=== PATIENT | female | born 1975 ===

== ENCOUNTER → 2017-10-05 17:54 | Outpatient (CLI) | payer OTHER | END | disposition home or self-care (01) | LOC: LAB 17:54 | DX: D68.8 Other specified coagulation defects (principal); I10 Essential (primary) hypertension; N39.0 Urinary tract infection, site not specified; Z01.818 Encounter for other preprocedural examination ==

== ENCOUNTER 2020-03-09 17:10 | Emergency (ER) | payer OTHER ==
[~2020-03-09] VITALS: Ht 167.6 cm; Wt 61.2 kg
== END 2020-03-09 20:30 | disposition home or self-care (01) ==
LOC: ER 17:10
DX: N61.0 Mastitis without abscess (principal); N64.89 Other specified disorders of breast